=== PATIENT | female | born 1975 | race African-American/Black ===

== ENCOUNTER 2023-12-20 05:12 | Observation (INO) | payer OTHER ==
[2023-12-20 05:41] VITALS: BMI 39.1
[2023-12-20] MEDS ORDERED: Ondansetron ODT 4 MG TAB PO PRN (06:00)
[2023-12-20] MEDS ORDERED: Calcium Carbonate 500 MG ChewTAB PO PRN (06:00)
[2023-12-20] MEDS ORDERED: Ondansetron PF 4 MG/2 ML Vial IVP PRN (06:00)
[2023-12-20] MEDS: Potassium Chloride 20 MEQ TAB PO SCH (07:00)
[2023-12-20] MEDS: Ferrous Sulfate 325 MG TAB PO SCH (07:00)
[2023-12-20] MEDS: Ibuprofen 400 MG TAB PO SCH ×2 (12:41→19:45)
[2023-12-20 20:12] LABS: Hematocrit 23.8 % (34.9-44.5); Hemoglobin 7.6 g/dL (12.0-15.5)
[2023-12-21 04:25] LABS: #Basophils 0.06 10x3/uL (0.0-0.2); #Eosinphils 0.24 10x3/uL (0.0-0.5); #Monocytes 0.63 10x3/uL (0.0-1.1); #Neutrophils 6.51 10x3/uL (1.5-8.4); %Basophils 0.7 % (0.0-2.0); %Eosinophils 2.7 % (0.0-6.0); %Monocytes 7.1 % (0.0-10.0); %Neutrophils 72.8 % (40.0-75.0); Hematocrit 23.6 % (34.9-44.5); Hemoglobin 7.5 g/dL (12.0-15.5); Mean Corpuscular HGB CONC 31.8 g/dL (32.0-36.0); Mean Corpuscular Hemoglobin 22.9 pg (27.0-33.0); Mean Platelet Volume 9.4 fL (7.4-10.4); Platelet Count 262 10x3/uL (150-450); RBC Distribution Width 27.7 % (11.5-14.5); Red Blood Cell (RBC) Count 3.28 10x6/uL (3.90-5.03); White Blood Cell (WBC) Count 8.9 10x3/uL (3.5-10.5)
[2023-12-21 04:31] LABS: ALT (SGPT) Less than 7 U/L (8-55); AST (SGOT) 9 U/L (5-34); Albumin 3.3 g/dL (3.5-5.0); Alkaline Phosphatase 79 U/L (40-110); Anion Gap 10 mmol/L (10-20); BUN (Urea Nitrogen) 7 mg/dL (7.0-18.7); Bilirubin, Total 0.5 mg/dL (0.2-1.2); Calc. Creatinine Clearance 158 mL/min (70-130); Carbon Dioxide 21 mmol/L (22-29); Chloride 111 mmol/L (98-107); Estimated GFR 94; Globulin 3.8 g/dL (2.4-3.5); Glucose 90 mg/dL (70-105); Potassium 3.9 mmol/L (3.5-5.1); Protein, Total 7.1 g/dL (6.0-8.3); Sodium 138 mmol/L (136-145)
[2023-12-21 07:39] VITALS: BP 105/53; TEMP 98.4
[2023-12-21] MEDS: Acetaminophen 325 MG TAB PO PRN (08:26)
[2023-12-21] MEDS ORDERED: Ibuprofen 400 MG TAB PO SCH (09:00)
== END 2023-12-21 09:25 | disposition home or self-care (01) ==
LOC: CSHPP 05:12
PROVIDERS: ADMIT Obstetrics & Gynecology; ATTEND Obstetrics & Gynecology
DX: N93.9 Abnormal uterine and vaginal bleeding, unspecified (principal); D25.9 Leiomyoma of uterus, unspecified; D62 Acute posthemorrhagic anemia; D32.9 Benign neoplasm of meninges, unspecified; F41.9 Anxiety disorder, unspecified; Z86.73 Personal history of transient ischemic attack (TIA), and cerebral infarction without residual deficits; Z88.2 Allergy status to sulfonamides; Z88.8 Allergy status to other drugs, medicaments and biological substances; Z98.890 Other specified postprocedural states; Z98.51 Tubal ligation status
CPT/HCPCS: 36415; 36430; 76856; 80053; 84703; 85025; 85610; 85730; 86850; 86900; 86901; G0378; P9016